=== PATIENT | male | born 1995 | race Caucasian/White ===

== ENCOUNTER 2019-03-28 17:21 | Emergency (ER) | payer MEDICAID ==
[~2019-03-28] VITALS: Ht 177.8 cm; Wt 91.2 kg
[2019-03-28 17:38] VITALS: Ht 177.8 cm; Wt 91.2 kg
[2019-03-28 20:18] VITALS: BP 130/76
== END 2019-03-28 20:18 | disposition home or self-care (01) ==
LOC: ED 17:21
DX: B34.9 Viral infection, unspecified (principal)
CPT/HCPCS: 87804

== ENCOUNTER 2019-04-02 09:10 | Emergency (ER) | payer MEDICAID ==
[~2019-04-02] VITALS: Ht 200.7 cm; Wt 91.6 kg
[2019-04-02 09:15] VITALS: BP 124/73; Ht 200.7 cm; Wt 91.6 kg
== END 2019-04-02 10:50 | disposition home or self-care (01) ==
LOC: ED 09:10
DX: H66.91 Otitis media, unspecified, right ear (principal); J06.9 Acute upper respiratory infection, unspecified
CPT/HCPCS: Q0092